=== PATIENT | male | born 1990 | race Caucasian/White ===

== ENCOUNTER 2017-03-02 09:20 | Emergency (ER) | payer SELFPAY ==
[~2017-03-02] VITALS: Ht 165.1 cm; Wt 59.0 kg
[~2017-03-02 09:20] MED LIST: CLIN1CAP5 PO; IBUP800T23 PO; ULTR50TA5 PO
[2017-03-02 09:25] VITALS: BP 135/72; PULSE 68; RESP 16; TEMP 97.8; O2SAT 100
[2017-03-02] MEDS ORDERED: SODIUM CHLORIDE 0.9% FLUSH 10 ML FLUSH IVF PRN (10:15)
[2017-03-02] MEDS ORDERED: SODIUM CHLOR 0.9% 1000 ML INJ 1,000 ML IV SCH (10:15)
[2017-03-02] MEDS ORDERED: KETOROLAC TROMETHAMINE 30 MG/ML (IVP) VIAL IV PUSH ONE (10:15)
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
[2017-03-02 10:25] LABS: CHLORIDE 105 MEQ/L (98-107); POTASSIUM 3.8 MEQ/L (3.5-5.1); SODIUM (NA) 139 MEQ/L (136-145)
[2017-03-02 10:27] LABS: AUTOMATED NEUTROPHIL # 3.6 TH/MM3 (1.8-7.7); BASOPHIL # 0.1 TH/MM3 (0-0.2); BASOPHIL % 1.2 % (0.0-2.0); EOSINOPHIL # 0.1 TH/MM3 (0-0.4); EOSINOPHIL % 1.9 % (0.0-4.0); HEMATOCRIT 45.5 % (39.0-51.0); HEMO FLAGS DIFF FINAL; LYMPH % 30.1 % (9.0-44.0); LYMPHOCYTE # 1.8 TH/MM3 (1.0-4.8); MEAN CELL VOLUME 89.5 FL (80.0-100.0); MEAN CORPUSCULAR HEMOGLOBIN 28.9 PG (27.0-34.0); MEAN CORPUSCULAR HGB CONC 32.3 % (32.0-36.0); MONO % 5.7 % (0.0-8.0); NEUT % 61.1 % (16.0-70.0); PLATELET COUNT 148 TH/MM3 (150-450); RED BLOOD COUNT 5.09 MIL/MM3 (4.50-5.90); RED CELL DISTRIBUTION WIDTH 12.7 % (11.6-17.2); WHITE BLOOD COUNT 5.9 TH/MM3 (4.0-11.0)
[2017-03-02 10:29] LABS: ANION GAP 6 MEQ/L (5-15); BICARBONATE 28.2 MEQ/L (21.0-32.0); BLOOD UREA NITROGEN 11 MG/DL (7-18); MAGNESIUM 2.1 MG/DL (1.5-2.5)
[2017-03-02 10:31] LABS: ALT (GPT) 15 U/L (12-78)
[2017-03-02 10:32] LABS: AST (GOT) 30 U/L (15-37); GLOMERULAR FILTRATION RATE 101 ML/MIN (>89)
[2017-03-02 10:33] LABS: TOTAL BILIRUBIN ADULT 0.3 MG/DL (0.2-1.0)
[2017-03-02 10:34] LABS: ALKALINE PHOSPHATASE 78 U/L (45-117)
[2017-03-02 10:40] VITALS: BP 116/73; PULSE 62; RESP 16; O2SAT 100
--- NOTE | 2017-03-02 10:50 | RADRPT ---
EXAM DATE/TIME: 03/02/2017 10:11 [facility] COMPARISON: No previous studies available for comparison. INDICATIONS : Chest pain MEDICAL HISTORY : None. SURGICAL HISTORY : None. ENCOUNTER: Initial ACUITY: 1 week PAIN SCORE: 6/10 LOCATION: Bilateral chest FINDINGS: PA and lateral views of the chest demonstrate the lungs to be symmetrically aerated without evidence of mass, infiltrate or effusion. 2 small adjacent calcified granulomas involving the left upper lobe. The cardiomediastinal contours are unremarkable. Osseous structures are intact. CONCLUSION: No acute disease. Rambo Cope Jr., MD on March 02, 2017 at 10:48 Board Certified Radiologist. This report was verified electronically.
[2017-03-02 11:23] VITALS: RESP 18
--- NOTE | 2017-03-02 20:00 | EKG ---
Date Performed: 03/02/2017 Time Performed: 09:27:11 PTAGE: 26 years EKG: Sinus rhythm NON-SPECIFIC ST/T WAVE CHANGES PREVIOUS TRACING : 07/20/2007 15.00 Compared to prior tracing no significant change DOCTOR: Steve Valentine Interpretating Date/Time 03/02/2017 20:00:53
== END 2017-03-02 11:25 | disposition home or self-care (01) ==
LOC: PHED 09:20
DX: R07.9 Chest pain, unspecified (principal); R42 Dizziness and giddiness; F17.200 Nicotine dependence, unspecified, uncomplicated; Z86.79 Personal history of other diseases of the circulatory system
CPT/HCPCS: 71020; 80053; 83735; 84484; 85025; 93005; 96374; 99285; J1885; J7030